=== PATIENT | male | born 1970 | race Caucasian/White ===

== ENCOUNTER 2016-08-02 18:25 | Emergency (ER) | payer SELFPAY ==
[~2016-08-02] VITALS: Ht 172.7 cm; Wt 57.0 kg
[2016-08-02 18:31] VITALS: BP 100/74; PULSE 85; RESP 18; TEMP 98.7; O2SAT 94
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
[2016-08-02] MEDS ORDERED: CLIN1CAP5 PO (20:22)
[2016-08-02] MEDS ORDERED: CLINDAMYCIN 150 MG CAP PO ONE (20:30)
[2016-08-02 20:46] VITALS: BP 106/76
== END 2016-08-02 20:48 | disposition home or self-care (01) ==
LOC: PHED 18:25 → PHEFT 20:48
DX: L72.0 Epidermal cyst (principal); F17.200 Nicotine dependence, unspecified, uncomplicated; Z88.2 Allergy status to sulfonamides
CPT/HCPCS: 99283

== ENCOUNTER 2017-08-30 14:02 | Observation (INO) | payer SELFPAY ==
[2017-08-30] VITALS (8 sets, daily range): BP systolic 98–127; BP diastolic 51–79; PULSE 77–91; RESP 18–20; TEMP 97.9–99.6; O2SAT 90–96
[~2017-08-30] VITALS: Ht 175.3 cm; Wt 58.8 kg
[~2017-08-30 14:02] MED LIST: CLIN150C14 PO
[2017-08-30] MEDS ORDERED: SODIUM CHLORIDE 0.9% FLUSH 10 ML FLUSH IVF PRN (14:30)
[2017-08-30] MEDS ORDERED: methylPREDNISolone SOD SUCC 125 MG/2 ML VIAL IV PUSH ONE (14:30)
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
[2017-08-30 14:51] LABS: AUTOMATED NEUTROPHIL # 3.8 TH/MM3 (1.8-7.7); BASOPHIL # 0.1 TH/MM3 (0-0.2); BASOPHIL % 1.3 % (0.0-2.0); EOSINOPHIL # 0.1 TH/MM3 (0-0.4); EOSINOPHIL % 1.2 % (0.0-4.0); HEMATOCRIT 45.8 % (39.0-51.0); HEMOGLOBIN 15.4 GM/DL (13.0-17.0); LYMPHOCYTE # 1.3 TH/MM3 (1.0-4.8); MEAN CELL VOLUME 96.3 FL (80.0-100.0); MEAN CORPUSCULAR HEMOGLOBIN 32.3 PG (27.0-34.0); MEAN CORPUSCULAR HGB CONC 33.6 % (32.0-36.0); MEAN PLATELET VOLUME 8.5 FL (7.0-11.0); MONO % 6.6 % (0.0-8.0); MONOCYTE # 0.4 TH/MM3 (0-0.9); NEUT % 67.9 % (16.0-70.0); PLATELET COUNT 191 TH/MM3 (150-450); RED BLOOD COUNT 4.75 MIL/MM3 (4.50-5.90); RED CELL DISTRIBUTION WIDTH 12.5 % (11.6-17.2); WHITE BLOOD COUNT 5.7 TH/MM3 (4.0-11.0)
[2017-08-30 15:00] LABS: CHLORIDE 106 MEQ/L (98-107); SODIUM (NA) 139 MEQ/L (136-145)
[2017-08-30] MEDS: RESP: ALBUTEROL 2.5 MG/IPRATROPIUM 0.5 MG NEB (SCH) INH ×4 (15:01→20:27)
[2017-08-30 15:03] LABS: BICARBONATE 26.8 MEQ/L (21.0-32.0); BLOOD UREA NITROGEN 6 MG/DL (7-18); CALCIUM 9.3 MG/DL (8.5-10.1); GLUCOSE,RANDOM 89 MG/DL (74-106)
[2017-08-30 15:06] LABS: ALT (GPT) 14 U/L (12-78); AST (GOT) 13 U/L (15-37); CREATININE 0.69 MG/DL (0.60-1.30); GLOMERULAR FILTRATION RATE 123 ML/MIN (>89)
[2017-08-30 15:08] LABS: TOTAL BILIRUBIN ADULT 0.7 MG/DL (0.2-1.0); TOTAL PROTEIN 7.7 GM/DL (6.4-8.2)
[2017-08-30 15:09] LABS: ALKALINE PHOSPHATASE 102 U/L (45-117)
[2017-08-30 15:11] LABS: TROPONIN I LESS THAN 0.02 NG/ML (0.02-0.05)
--- NOTE | 2017-08-30 16:01 | RADRPT ---
EXAM DATE/TIME: 08/30/2017 15:34 [facility] COMPARISON: CHEST SINGLE AP, December 31, 2015, 10:38. INDICATIONS : Cough and short of breath for several days. MEDICAL HISTORY : None. SURGICAL HISTORY : None. ENCOUNTER: Initial ACUITY: 3 days PAIN SCORE: 3/10 LOCATION: Bilateral chest FINDINGS: PA and lateral views of the chest demonstrate the lungs to be symmetrically aerated without evidence of mass, infiltrate or effusion. The cardiomediastinal contours are unremarkable. Mild wedge-shaped deformities of the midthoracic spine with slight exaggerated kyphosis. Conclusion: No acute cardiopulmonary disease. Mild wedge-shaped midthoracic spine compression deformities. Anirudh Anderson MD on August 30, 2017 at 15:56 Board Certified Radiologist. This report was verified electronically.
[2017-08-30] MEDS ORDERED: SODIUM CHLOR 0.9% 1000 ML INJ 1,000 ML IV ONE (16:30)
--- NOTE | 2017-08-30 17:12 | HHI.HP ---
[facility] Service [facility] Primary Care Physician No Primary Care Physician Admission Diagnosis copd exacerbation Diagnoses: Chief Complaint: Shortness of breath Travel History International Travel<30 Days: No Contact w/Intl Traveler <30 Da: No Traveled to Known Affected Are: No History of Present Illness This patient is a 47-year-old gentleman with minimal past medical history and 20 -pack-year history of tobacco who comes in with increasing shortness of breath over the last several months worse over the last 3 days. He can barely walk across his house with out shortness of breath or dizziness. He has some chest tightness associated and has increasing sputum with cough. He feels that there is a lot of phlegm in his throat. He is denying any fever or swelling in his legs. He has not had any wiliam chest pain. Patient does not take any medications at home. He lives with his mother and is relatively inactive. He also reports at least a 15 pound weight loss over the last 3 months. He has not had any nausea or vomiting. Patient does have some diarrhea. Ower Review of Systems Constitutional: COMPLAINS OF: Dizziness, DENIES: Diaphoretic episodes, Fatigue , Fever, Weight gain, Weight loss, Chills, Change in appetite, Night Sweats Endocrine: DENIES: Heat/cold intolerance, Polydipsia, Polyuria, Polyphagia Eyes: DENIES: Blurred vision, Diplopia, Eye inflammation, Eye pain, Vision loss , Photosensitivity, Double Vision Ears, nose, mouth, throat: DENIES: Tinnitus, Hearing loss, Vertigo, Nasal discharge, Oral lesions, Throat pain, Hoarseness, Ear Pain, Running Nose, Epistaxis, Sinus Pain, Toothache, Odynophagia Respiratory: COMPLAINS OF: Cough, Sputum production, Shortness of breath, DENIES: Apneas, Snoring, Wheezing, Hemoptysis Cardiovascular: COMPLAINS OF: Dyspnea on Exertion, DENIES: Chest pain, Palpitations, Syncope, PND, Lower Extremity Edema, Orthopnea, Claudication Gastrointestinal: DENIES: Abdominal pain, Black stools, Bloody stools, Constipation, Diarrhea, Nausea, Vomiting, Difficulty Swallowing, Anorexia Genitourinary: DENIES: Sexual dysfunction, Urinary frequency, Urinary incontinence, Urgency, Hematuria, Dysuria, Nocturia, Penile Discharge, Testicular Pain, Testicular Swelling Musculoskeletal: DENIES: Joint pain, Muscle aches, Stiffness, Joint Swelling, Back pain, Neck pain Integumentary: DENIES: Abnormal pigmentation, Nail changes, Pruritus, Rash Hematologic/lymphatic: DENIES: Bruising, Lymphadenopathy Immunologic/allergic: DENIES: Eczema, Urticaria Neurologic: DENIES: Abnormal gait, Headache, Localized weakness, Paresthesias, Seizures, Speech Problems, Tremor, Poor Balance Psychiatric: DENIES: Anxiety, Confusion, Mood changes, Depression, Hallucinations, Agitation, Suicidal Ideation, Homicidal Ideation, Delusions Except as stated in HPI: all other systems reviewed are Neg Past Family Social History Past Medical History Degenerative disc disease Chronic tobacco dependency Past Surgical History Tonsillectomy Status post splenectomy Reported Medications Reviewed in the EMR Allergies: Coded Allergies: sulfamethoxazole (Unverified Allergy, Severe, Anaphylaxis, 08/30/17) trimethoprim (Unverified Allergy, Severe, Anaphylaxis, 08/30/17) Active Ordered Medications Reviewed in the EMR Family History Mother has retinal degeneration Social History Patient smokes a pack a day for the last 20 years, lives with his mother, has an A.S. in [employer] Denies alcohol Physical Exam Vital Signs Vital Signs Date Time Temp Pulse Resp B/P (MAP) Pulse Ox O2 Delivery O2 Flow Rate FiO2 08/30/17 16:30 91 Nasal Cannula 2.00 08/30/17 16:30 89 20 98/67 (77) 91 Nasal Cannula 2.00 08/30/17 16:20 90 Room Air 08/30/17 15:40 89 20 117/68 (84) 95 Room Air 08/30/17 14:54 94 Room Air 08/30/17 14:54 94 08/30/17 14:05 98.2 77 18 127/69 (88) 92 Physical Exam GENERAL: This is a thin male who is complaining of lightheadedness SKIN: No rashes, ecchymoses or lesions. Cool and dry. HEAD: Atraumatic. Normocephalic. No temporal or scalp tenderness. EYES: Pupils equal round and reactive. Extraocular motions intact. No scleral icterus. No injection or drainage. ENT: Nose without bleeding, purulent drainage or septal hematoma. Throat without erythema, tonsillar hypertrophy or exudate. Uvula midline. Airway patent. NECK: Trachea midline. No JVD or lymphadenopathy. Supple, nontender, no meningeal signs. CARDIOVASCULAR: Regular rate and rhythm without murmurs, gallops, or rubs. RESPIRATORY: Decreased breath sounds bilaterally with scattered crackles GASTROINTESTINAL: Abdomen soft, non-tender, nondistended. No hepato-splenomegaly , or palpable masses. No guarding. MUSCULOSKELETAL: Extremities without clubbing, cyanosis, or edema. No joint tenderness, effusion, or edema noted. No calf tenderness. Negative Homans sign bilaterally. NEUROLOGICAL: Awake and alert. Cranial nerves II through XII intact. Motor and sensory grossly within normal limits. Five out of 5 muscle strength in all muscle groups. Normal speech. Laboratory Laboratory Tests Test 08/30/17 14:40 White Blood Count 5.7 Red Blood Count 4.75 Hemoglobin 15.4 Hematocrit 45.8 Mean Corpuscular Volume 96.3 Mean Corpuscular Hemoglobin 32.3 Mean Corpuscular Hemoglobin Concent 33.6 Red Cell Distribution Width 12.5 Platelet Count 191 Mean Platelet Volume 8.5 Neutrophils (%) (Auto) 67.9 Lymphocytes (%) (Auto) 23.0 Monocytes (%) (Auto) 6.6 Eosinophils (%) (Auto) 1.2 Basophils (%) (Auto) 1.3 Neutrophils # (Auto) 3.8 Lymphocytes # (Auto) 1.3 Monocytes # (Auto) 0.4 Eosinophils # (Auto) 0.1 Basophils # (Auto) 0.1 CBC Comment DIFF FINAL Differential Comment Blood Urea Nitrogen 6 Creatinine 0.69 Random Glucose 89 Total Protein 7.7 Albumin 4.0 Calcium Level 9.3 Alkaline Phosphatase 102 Aspartate Amino Transf (AST/SGOT) 13 Alanine Aminotransferase (ALT/SGPT) 14 Total Bilirubin 0.7 Sodium Level 139 Potassium Level 4.4 Chloride Level 106 Carbon Dioxide Level 26.8 Anion Gap 6 Estimat Glomerular Filtration Rate 123 Troponin I LESS THAN 0.02 B-Type Natriuretic Peptide 4 Result Diagram: 08/30/17 1440 08/30/17 1440 Imaging Last Impressions Chest X-Ray 08/30/17 1424 Signed Impressions: Service Date/Time: Wednesday, August 30, 2017 15:34 - CONCLUSION: No acute cardiopulmonary disease. Mild wedge-shaped midthoracic spine compression deformities. Anirudh Anderson MD Septic Shock Reassessment Septic shock perfusion: reassessment completed Caprini VTE Risk Assessment Caprini VTE Risk Assessment: No/Low Risk (score <= 1) Caprini Risk Assessment Model Point Value = 1 Point Value = 2 Point Value = 3 Point Value = 5 Age 41-60 Minor surgery BMI > 25 kg/m2 Swollen legs Varicose veins or History of unexplained or recurrent spontaneous Oral contraceptives or hormone replacement Sepsis (< 1 month) Serious lung disease, including pneumonia (< 1 month) Abnormal pulmonary function Acute myocardial infarction Congestive heart failure (< 1 month) History of inflammatory bowel disease Medical patient at bed rest Age 61-74 Arthroscopic surgery Major open surgery (> 45 min) Laparoscopic surgery (> 45 min) Malignancy Confined to bed (> 72 hours) Immobilizing plaster cast Central venous access Age >= 75 History of VTE Family history of VTE Factor V Leiden Prothrombin [id number] Lupus anticoagulant Anticardiolipin antibodies Elevated serum homocysteine Heparin-induced thrombocytopenia Other congenital or acquired thrombophilia Stroke (< 1 month) Elective arthroplasty Hip, pelvis, or leg fracture Acute spinal cord injury (< 1 month) Prophylaxis Regimen Total Risk Factor Score Risk Level Prophylaxis Regimen 0-1 Low Early ambulation 2 Moderate Order ONE of the following: *Sequential Compression Device (SCD) *Heparin 5000 units SQ BID 3-4 Higher Order ONE of the following medications: *Heparin 5000 units SQ TID *Enoxaparin/Lovenox 40 mg SQ daily (WT < 150 kg, CrCl > 30 mL/min) *Enoxaparin/Lovenox 30 mg SQ daily (WT < 150 kg, CrCl > 10-29 mL/min) *Enoxaparin/Lovenox 30 mg SQ BID (WT < 150 kg, CrCl > 30 mL/min) AND/OR *Sequential Compression Device (SCD) 5 or more Highest Order ONE of the following medications: *Heparin 5000 units SQ TID (Preferred with Epidurals) *Enoxaparin/Lovenox 40 mg SQ daily (WT < 150 kg, CrCl > 30 mL/min) *Enoxaparin/Lovenox 30 mg SQ daily (WT < 150 kg, CrCl > 10-29 mL/min) *Enoxaparin/Lovenox 30 mg SQ BID (WT < 150 kg, CrCl > 30 mL/min) AND *Sequential Compression Device (SCD) Assessment and Plan Problem List: (1) Acute respiratory failure with hypoxia ICD Code: J96.01 - Acute respiratory failure with hypoxia Status: Resolved Plan: We will continue with empiric treatment for acute bronchitis, continue antibiotics, bronchodilators by nebulizer IV steroids Oxygen as needed Follow-up ABG Add proton pump inhibitor and check echocardiogram (2) Hypotension ICD Code: I95.9 - Hypotension, unspecified Plan: Etiology unclear, patient appears to have some weight loss Follow-up clinically Assessment and Plan Patient also with a history of scoliosis and degenerative disc disease which may explain the findings on CT Juani Baez MD August 30, 2017 17:12
[2017-08-30] MEDS ORDERED: AZITHROMYCIN 250 MG TAB PO ONE ×2 (17:15→17:30)
[2017-08-30] MEDS ORDERED: RESP: ALBUTEROL 2.5 MG/3 ML NEB (PRN) INH (17:15)
[2017-08-30] MEDS ORDERED: SODIUM CHLORIDE 0.9% FLUSH 10 ML FLUSH IV FLUSH PRN (17:15)
[2017-08-30] MEDS: PANTOPRAZOLE SOD 40 MG DELAYED RELEASE TAB PO SCH (17:51)
[2017-08-30] MEDS ORDERED: ENOXAPARIN SODIUM 40 MG/0.4 ML SYRINGE SQ SCH (18:00)
[2017-08-30] MEDS: SODIUM CHLORIDE 0.9% FLUSH 10 ML FLUSH IV FLUSH SCH (20:22)
[2017-08-30] MEDS ORDERED: ACETAMINOPHEN 325 MG TAB PO PRN (21:15)
[2017-08-30] MEDS: methylPREDNISolone SOD SUCC 125 MG/2 ML VIAL IV PUSH SCH (21:24)
[2017-08-30] MEDS ORDERED: IOHEXOL 350 MG/ML 10 ML VIAL (for RAD DIAG) IVCONTRAST ONE (21:32)
--- NOTE | 2017-08-30 22:03 | RADRPT ---
EXAM DATE/TIME: 08/30/2017 21:32 [facility] COMPARISON: No previous studies available for comparison. INDICATIONS : Shortness of breath. Chest pain. IV CONTRAST: 75 cc Omnipaque 350 (iohexol) IV RADIATION DOSE: 7.47 CTDIvol (mGy) MEDICAL HISTORY : None SURGICAL HISTORY : Spleen. ENCOUNTER: Initial ACUITY: 3 days PAIN SCALE: 5/10 LOCATION: Bilateral chest TECHNIQUE: Volumetric scanning of the chest was performed using a pulmonary embolism protocol MIP images were re constructed. Using automated exposure control and adjustment of the mA and/or kV according to patien t size, radiation dose was kept as low as reasonably achievable to obtain optimal diagnostic quality images. DICOM format image data is available electronically for review and comparison. Follow-up recommendations for detected pulmonary nodules are based at a minimum on nodule size and pa tient risk factors according to Fleischner Society Guidelines. FINDINGS: PULMONARY ARTERIES: No filling defects are seen in the pulmonary arteries through the segmental level. LUNGS: There is no consolidation or pneumothorax . No concerning pulmonary nodule is visualized. PLEURAE: There is no pleural thickening or pleural effusion. MEDIASTINUM: There is good visualization of the great vessels of the middle mediastinum. No evidence of mediastin al or hilar adenopathy/mass. MUSCULOSKELETAL: Within normal limits for patient age. MISCELLANEOUS: The visualized upper abdominal organs demonstrate no acute abnormality. CONCLUSION: 1. Negative for pulmonary embolus. Mild peribronchial thickening is present without consolidation or effusion. Griffin Mckeon MD on August 30, 2017 at 21:59 Board Certified Radiologist. This report was verified electronically.
[2017-08-31 00:17] VITALS: BP 103/56; PULSE 88; RESP 20; TEMP 98.2; O2SAT 94
[2017-08-31] MEDS: methylPREDNISolone SOD SUCC 125 MG/2 ML VIAL IV PUSH SCH ×2 (03:38→10:08)
[2017-08-31 06:53] LABS: BICARBONATE 24.9 MEQ/L (21.0-32.0); CALCIUM 9.2 MG/DL (8.5-10.1)
[2017-08-31 06:57] LABS: CREATININE 0.6 MG/DL (0.60-1.30)
[2017-08-31] MEDS: RESP: ALBUTEROL 2.5 MG/IPRATROPIUM 0.5 MG NEB (SCH) INH ×2 (07:27→13:31)
[2017-08-31 07:29] VITALS: O2SAT 98
[2017-08-31 08:00] VITALS: BP 111/66; PULSE 82; RESP 18; TEMP 97.4; O2SAT 95
--- NOTE | 2017-08-31 08:52 | EKG ---
Date Performed: 08/30/2017 Time Performed: 14:13:10 PTAGE: 47 years EKG: Sinus rhythm WITH SINUS ARRHYTHMIA BORDERLINE RIGHT AXIS DEVIATION BORDERLINE ECG PREVIOUS TRACING : 12/31/2015 10.47 Since the previous tracing, no significant change noted DOCTOR: Lemuel Pérez Interpretating Date/Time 08/31/2017 08:48:35
[2017-08-31] MEDS ORDERED: AZITHROMYCIN 250 MG TAB PO SCH (09:00)
[2017-08-31] MEDS: SODIUM CHLORIDE 0.9% FLUSH 10 ML FLUSH IV FLUSH SCH (10:07)
[2017-08-31] MEDS: PANTOPRAZOLE SOD 40 MG DELAYED RELEASE TAB PO SCH (10:08)
[2017-08-31 12:00] VITALS: BP 111/67; PULSE 96; RESP 18; TEMP 97; O2SAT 95
--- NOTE | 2017-08-31 12:04 | HHI.PR ---
Subjective Remarks Patient seen and evaluated in follow-up for acute bronchitis which appears to be improved. Discharge plans discussed with patient who is in agreement. Echocardiogram completed. Patient says he feels much better. He is not hypoxemic Objective Vitals Vital Signs Date Time Temp Pulse Resp B/P (MAP) Pulse Ox O2 Delivery O2 Flow Rate FiO2 08/31/17 07:29 98 Nasal Cannula 2.00 08/31/17 00:17 98.2 88 20 103/56 (72) 94 08/30/17 20:25 95 Nasal Cannula 2.00 08/30/17 20:00 99.6 91 20 105/51 (69) 91 08/30/17 17:45 97.9 79 18 119/79 (92) 96 08/30/17 17:30 08/30/17 16:30 91 Nasal Cannula 2.00 08/30/17 16:30 89 20 98/67 (77) 91 Nasal Cannula 2.00 08/30/17 16:20 90 Room Air 08/30/17 15:40 89 20 117/68 (84) 95 Room Air 08/30/17 14:54 94 Room Air 08/30/17 14:54 94 08/30/17 14:05 98.2 77 18 127/69 (88) 92 Result Diagram: 08/30/17 1440 08/31/17 0545 Imaging Last Impressions Chest X-Ray 08/30/17 1424 Signed Impressions: Service Date/Time: Wednesday, August 30, 2017 15:34 - CONCLUSION: No acute cardiopulmonary disease. Mild wedge-shaped midthoracic spine compression deformities. Anirudh Anderson MD CT Angiography 08/30/17 0000 Signed Impressions: Service Date/Time: Wednesday, August 30, 2017 21:32 - CONCLUSION: 1. Negative for pulmonary embolus. Mild peribronchial thickening is present without consolidation or effusion. Griffin Mckeon MD Objective Remarks GENERAL: This is a well-nourished, well-developed patient, in no apparent distress. CARDIOVASCULAR: Regular rate and rhythm without murmurs, gallops, or rubs. RESPIRATORY: Clear to auscultation. Breath sounds equal bilaterally. No wheezes , rales, or rhonchi. GASTROINTESTINAL: Abdomen soft, non-tender, nondistended. Normal active bowel sounds MUSCULOSKELETAL: Extremities without clubbing, cyanosis, or edema. NEURO: Alert & Oriented x4 to person, place, time, situation. Moves all ext x4 A/P Problem List: (1) Acute respiratory failure with hypoxia ICD Code: J96.01 - Acute respiratory failure with hypoxia Status: Resolved Plan: We will continue with empiric treatment for acute bronchitis, continue antibiotics, bronchodilators by nebulizer IV steroids Patient also to, ABG unremarkable Add proton pump inhibitor and check echocardiogram (2) Hypotension ICD Code: I95.9 - Hypotension, unspecified Plan: Resolved Assessment and Plan Activity unrestricted Diet regular Patient encouraged to discontinue tobacco Juani Baez MD August 31, 2017 12:04
[2017-08-31] MEDS ORDERED: NEBULIZER1 MI1 (12:07)
[2017-08-31] MEDS ORDERED: PRED20 PO (12:07)
[2017-08-31] MEDS ORDERED: Albuterol Neb INH (12:07)
[2017-08-31] MEDS ORDERED: AZIT250T3 PO (12:07)
[2017-08-31] MEDS ORDERED: PANT40TA3 PO (12:07)
--- NOTE | 2017-08-31 16:59 | ECHRPT ---
Indication: SHORTNESS OF BREATH CONCLUSIONS Normal left ventricular size. ef=60% Wall thickness is normal. The left ventricular systolic function is grossly normal on limited imaging. BP: 103 / 56 HR: 88 Rhythm: MEASUREMENTS (Male / Female) Normal Values Technical Quality: 2D ECHO LV Diastolic Diameter PLAX 4.5 cm 4.2 - 5.9 / 3.9 - 5.3 cm LV Systolic Diameter PLAX 3.0 cm IVS Diastolic Thickness 0.9 cm 0.6 - 1.0 / 0.6 - 0.9 cm LVPW Diastolic Thickness 0.9 cm 0.6 - 1.0 / 0.6 - 0.9 cm LV Relative Wall Thickness 0.4 DOPPLER AV Peak Velocity 141.0 cm/s AV Peak Gradient 8.0 mmHg AV Mean Gradient 4.0 mmHg AV Velocity Time Integral 30.1 cm LVOT Peak Velocity 106.0 cm/s LVOT Peak Gradient 4.5 mmHg LVOT Velocity Time Integral 24.5 cm Mitral E Point Velocity 81.9 cm/s Mitral A Point Velocity 59.7 cm/s Mitral E to A Ratio 1.4 LV E' Lateral Velocity 10.5 cm/s Mitral E to LV E' Lateral Ratio 7.8 LV E' Septal Velocity 6.9 cm/s Mitral E to LV E' Septal Ratio 11.8 PV Peak Velocity 84.2 cm/s PV Peak Gradient 2.8 mmHg FINDINGS LEFT VENTRICLE Normal left ventricular size. Wall thickness is normal. The left ventricular systolic function is grossly normal on limited imaging. RIGHT VENTRICLE Normal right ventricular size and systolic function. LEFT ATRIUM The left atrial size is normal. RIGHT ATRIUM The right atrial size is normal. ATRIAL SEPTUM No atrial level shunt is demonstrated by color flow Doppler interrogation. AORTA The aortic root and proximal ascending aorta are not well visualized. MITRAL VALVE Structurally normal mitral valve. No mitral valve stenosis or regurgitation. AORTIC VALVE Trileaflet aortic valve. No aortic valve stenosis or regurgitation. TRICUSPID VALVE Structurally normal tricuspid valve. No tricuspid valve stenosis or regurgitation. PULMONARY VALVE No pulmonary valve regurgitation or stenosis. VESSELS The inferior vena cava is normal in size. PERICARDIUM No pericardial effusion. Markie Keyes MD, FACC, [facility] (Electronically Signed) Final Date:31 Aug 2017 16:58
== END 2017-08-31 14:47 | disposition home or self-care (01) ==
LOC: PHED 14:02 → PHEDA 16:37 → PH3B 17:29
PROVIDERS: ADMIT Hospitalist; ATTEND Hospitalist
DX: J96.01 Acute respiratory failure with hypoxia (principal); J44.1 Chronic obstructive pulmonary disease with (acute) exacerbation; J44.0 Chronic obstructive pulmonary disease with (acute) lower respiratory infection; J20.9 Acute bronchitis, unspecified; I95.9 Hypotension, unspecified; I49.9 Cardiac arrhythmia, unspecified; R19.7 Diarrhea, unspecified; M41.9 Scoliosis, unspecified; F17.200 Nicotine dependence, unspecified, uncomplicated
CPT/HCPCS: 36600; 71046; 71275; 80048; 80053; 82805; 83880; 84484; 85025; 93005; 93306; 94618; 94640; 94664; 96361; 96372; 96374; 96376; 99285; G0378; J1650; J2930; J7030; Q9967

== ENCOUNTER 2017-10-06 19:30 | Observation (INO) | payer SELFPAY ==
[~2017-10-06] VITALS: Ht 170.2 cm; Wt 56.2 kg
[~2017-10-06 19:30] MED LIST changes: +AZIT250T3 PO; +Albuterol Neb INH; -CLIN150C14 PO; +NEBULIZER1 MI1; +PANT40TA3 PO; +PRED20 PO
[2017-10-06 19:35] VITALS: BP 111/76; PULSE 104; RESP 20; TEMP 99.3; O2SAT 94
[2017-10-06] MEDS ORDERED: VENTAER INH (19:51)
[2017-10-06] MEDS ORDERED: methylPREDNISolone SOD SUCC 125 MG/2 ML VIAL IV PUSH ONE (20:00)
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
[2017-10-06] MEDS: RESP: ALBUTEROL 2.5 MG/IPRATROPIUM 0.5 MG NEB (SCH) INH ×2 (20:07→20:08)
[2017-10-06 20:14] LABS: AUTOMATED NEUTROPHIL # 6.5 TH/MM3 (1.8-7.7); BASOPHIL # 0.2 TH/MM3 (0-0.2); BASOPHIL % 2.1 % (0.0-2.0); EOSINOPHIL % 0.4 % (0.0-4.0); HEMATOCRIT 45.8 % (39.0-51.0); HEMOGLOBIN 15.7 GM/DL (13.0-17.0); LYMPH % 17.7 % (9.0-44.0); LYMPHOCYTE # 1.5 TH/MM3 (1.0-4.8); MEAN CELL VOLUME 100.1 FL (80.0-100.0); MEAN CORPUSCULAR HEMOGLOBIN 34.4 PG (27.0-34.0); MEAN CORPUSCULAR HGB CONC 34.3 % (32.0-36.0); MEAN PLATELET VOLUME 8.1 FL (7.0-11.0); MONOCYTE # 0.4 TH/MM3 (0-0.9); NEUT % 74.8 % (16.0-70.0); PLATELET COUNT 220 TH/MM3 (150-450); RED BLOOD COUNT 4.58 MIL/MM3 (4.50-5.90); RED CELL DISTRIBUTION WIDTH 12.6 % (11.6-17.2); WHITE BLOOD COUNT 8.6 TH/MM3 (4.0-11.0)
--- NOTE | 2017-10-06 20:15 | RADRPT ---
EXAM DATE: 10/06/2017 8:10 PM EDT AGE/SEX: 47 years / Male INDICATIONS: Short of breath. CLINICAL DATA: This is the patient's initial encounter. Patient reports that signs and symptoms have been present for 1 day and indicates a pain score of 0/10. MEDICAL/SURGICAL HISTORY: None. None. COMPARISON: [facility], CHEST SINGLE AP, 12/31/2015. . FINDINGS: Portable AP view of the chest demonstrates a normal-sized cardiac silhouette. The lungs demonstrate n o definite effusion, consolidation, or pneumothorax. The bones and soft tissues demonstrate no acute finding. Lungs are mildly underinflated. EKG lines overlie the patient. CONCLUSION: No acute cardiopulmonary abnormality is identified. Electronically signed by: Celestino Rivas MD 10/06/2017 8:13 PM EDT
[2017-10-06 20:21] LABS: CHLORIDE 101 MEQ/L (98-107); SODIUM (NA) 135 MEQ/L (136-145)
[2017-10-06 20:24] LABS: BICARBONATE 27.2 MEQ/L (21.0-32.0); CALCIUM 8.8 MG/DL (8.5-10.1); GLUCOSE,RANDOM 113 MG/DL (74-106); PROTHROMBIN TIME - PATIENT 10.2 SEC (9.8-11.6)
[2017-10-06] MEDS ORDERED: IOHEXOL 350 MG/ML 10 ML VIAL (for RAD DIAG) IVCONTRAST ONE (20:24)
[2017-10-06 20:25] LABS: BLOOD UREA NITROGEN 6 MG/DL (7-18)
[2017-10-06 20:28] LABS: CREATININE 0.76 MG/DL (0.60-1.30); GLOMERULAR FILTRATION RATE 110 ML/MIN (>89)
[2017-10-06 20:32] LABS: TROPONIN I LESS THAN 0.02 NG/ML (0.02-0.05)
--- NOTE | 2017-10-06 20:35 | RADRPT ---
EXAM DATE: 10/06/2017 8:23 PM EDT AGE/SEX: 47 years / Male INDICATIONS: Lower abdominal pain. CLINICAL DATA: This is the patient's initial encounter. Patient reports that signs and symptoms have been present for 1 day and indicates a pain score of 1/10. MEDICAL/SURGICAL HISTORY: Chronic obstructive pulmonary disease. . Spleen surgery. ORAL CONTRAST: No oral contrast ingested. RADIATION DOSE: 5.38 CTDI (mGy) COMPARISON: No prior exams available for comparison. TECHNIQUE: Multiple contiguous axial images were obtained through the abdomen and pelvis following b olus infusion of 90 ml Omnipaque 350 (iohexol) nonionic water-soluble contrast as a single exam dos e. No oral contrast ingested. Using automated exposure control and adjustment of the mA and/or kV ac cording to patient size, the radiation dose was kept as low as reasonably achievable to obtain optima l diagnostic quality images. FINDINGS: Lower chest: No acute abnormality is identified. Hepatobiliary: There is an incidental 3 mm low-density lesion in the left lobe that is too small to c haracterize. No concerning liver lesion is seen. No calcified gallstones are present. Kidneys: No hydronephrosis, stone, or mass. Adrenal Glands: Within normal limits. Spleen: Within normal limits. Pancreas: Within normal limits. Vascular: The aorta is nonaneurysmal. There is moderate atherosclerotic disease. Bowel/Mesentery: The stomach and small bowel demonstrate no abnormality. No acute colon abnormality i s seen. There is no free intraperitoneal air or fluid. Abdominal Wall: No hernia is visualized. Retroperitoneum: No lymphadenopathy. Bladder: No wall thickening or mass. Reproductive: Within normal limits. Inguinal: No lymphadenopathy or hernia. Musculoskeletal: No acute osseous abnormality is identified. There are mild degenerative changes of t he lumbar spine. There is degenerative disc disease at L4-L5. CONCLUSION: 1. No acute finding is identified in the abdomen or pelvis to explain the abdominal pain. 2. Moderate atherosclerotic disease. Electronically signed by: Celestino Rivas MD 10/06/2017 8:34 PM EDT
[2017-10-06 21:00] VITALS: O2SAT 93
[2017-10-06] MEDS ORDERED: ACETAMINOPHEN 325 MG TAB PO PRN (21:00)
[2017-10-06] MEDS ORDERED: SODIUM CHLORIDE 0.9% FLUSH 10 ML FLUSH IV FLUSH PRN (21:00)
[2017-10-06] MEDS ORDERED: ONDANSETRON HCL 4 MG/2 ML VIAL IVP PRN (21:00)
[2017-10-06] MEDS ORDERED: BISACODYL 10 MG SUPP RECTAL PRN (21:00)
[2017-10-06] MEDS ORDERED: LACTULOSE SYRUP 20 GM/30 ML CUP PO PRN (21:00)
[2017-10-06] MEDS ORDERED: NALOXONE HCL 0.4 MG/ML AMP IV PUSH PRN (21:00)
[2017-10-06] MEDS ORDERED: SENNOSIDES 8.6 MG TAB PO PRN (21:00)
[2017-10-06] MEDS ORDERED: MAGNESIUM HYDROXIDE SUSP 30 ML CUP PO PRN (21:00)
[2017-10-06 21:02] VITALS: PULSE 104; RESP 18; O2SAT 100
[2017-10-06] MEDS: DOCUSATE SODIUM 50 MG/SENNA 8.6 MG TAB PO SCH (21:16)
[2017-10-06] MEDS: SODIUM CHLORIDE 0.9% FLUSH 10 ML FLUSH IV FLUSH SCH (21:16)
[2017-10-06 21:21] VITALS: BP 108/66; PULSE 103; RESP 18; O2SAT 100
[2017-10-06 22:47] VITALS: BP 112/86; PULSE 88; RESP 20; TEMP 97.1; O2SAT 100
[2017-10-06 23:30] VITALS: O2SAT 94
[2017-10-07 04:07] VITALS: BP 113/72; PULSE 83; RESP 20; TEMP 97; O2SAT 96
[2017-10-07 07:48] LABS: AUTOMATED NEUTROPHIL # 4.6 TH/MM3 (1.8-7.7); BASOPHIL # 0.1 TH/MM3 (0-0.2); BASOPHIL % 1.1 % (0.0-2.0); EOSINOPHIL % 0.7 % (0.0-4.0); HEMATOCRIT 41.4 % (39.0-51.0); HEMOGLOBIN 14.5 GM/DL (13.0-17.0); LYMPH % 11.7 % (9.0-44.0); LYMPHOCYTE # 0.6 TH/MM3 (1.0-4.8); MEAN CELL VOLUME 95.5 FL (80.0-100.0); MEAN CORPUSCULAR HEMOGLOBIN 33.5 PG (27.0-34.0); MEAN CORPUSCULAR HGB CONC 35.1 % (32.0-36.0); MEAN PLATELET VOLUME 9.4 FL (7.0-11.0); MONO % 0.7 % (0.0-8.0); NEUT % 85.8 % (16.0-70.0); PLATELET COUNT 186 TH/MM3 (150-450); RED BLOOD COUNT 4.34 MIL/MM3 (4.50-5.90); RED CELL DISTRIBUTION WIDTH 12.5 % (11.6-17.2); WHITE BLOOD COUNT 5.3 TH/MM3 (4.0-11.0)
[2017-10-07 07:57] VITALS: BP 110/79; PULSE 84; RESP 18; TEMP 96.5; O2SAT 97
[2017-10-07] MEDS: DOCUSATE SODIUM 50 MG/SENNA 8.6 MG TAB PO SCH (08:04)
[2017-10-07] MEDS: SODIUM CHLORIDE 0.9% FLUSH 10 ML FLUSH IV FLUSH SCH (08:04)
[2017-10-07 08:08] LABS: BICARBONATE 22.5 MEQ/L (21.0-32.0); CREATININE 0.63 MG/DL (0.60-1.30)
[2017-10-07] MEDS ORDERED: RESP: ALBUTEROL 2.5 MG/IPRATROPIUM 0.5 MG NEB (PRN) NEB (10:00)
[2017-10-07 10:45] VITALS: O2SAT 94
[2017-10-07] MEDS ORDERED: BUDESONIDE-FORMOTEROL 160/4.5 MCG INHALER INH SCH (11:00)
[2017-10-07 11:35] VITALS: BP 117/60; PULSE 73; RESP 18; TEMP 96.6; O2SAT 95
--- NOTE | 2017-10-07 11:38 | HHI.HP ---
[facility] John Curiel MD (Paul) Admission Diagnosis Hypoxemia, elevated carboxyhemoglobin Diagnoses: Travel History International Travel<30 Days: No Contact w/Intl Traveler <30 Da: No Traveled to Known Affected Are: No History of Present Illness Pt is a 47 yr male w PMHx COPD exacerbation, tobacco abuse presented to the ED w complaints of SOB. Pt states he was recently admitted about 1 month ago w same symptoms and was discharged w nebulizer treatments. He states that he did his breathing treatments but didn't improve much. He did go see Dr. Curiel, but apparently he wasn't able to obtain his records and ended up prescribing him an albuterol inhaler. Pt went home and after two weeks, still wasn't feeling well. He attempted to go see Dr. Curiel but unfortunately they couldn't get him in. He tried to manage it at home and using his nebulizer every 4 hours instead of 6hrs. Finally last night he decided to come in to the hospital for further eval. He states that at the time he was seen he was very SOB, was experiencing a burning sensation to his chest. He admitted to some coughing. Denied any fevers or chills and denied any chest pains. In the ED, he received a dose of solu-medrol IV and a breathing treatment and was also given high flow oxygen. At time I evaluated the pt, he tells me that he feels 80% better. I did observe him walking in his room going from the bathroom to his bed w not much difficulty. Review of Systems Except as stated in HPI: all other systems reviewed are Neg Past Family Social History Past Medical History Degenerative disc disease Chronic tobacco dependency COPD Past Surgical History Tonsillectomy and adenoidectomy Status post splenectomy Reported Medications Reported Meds & Active Scripts Active Nebulizer 1 Mis Mis Ea .XX DIRECTED [Albuterol Neb] 2.5 MG/3 ML Nebu 2.5 Mg INH Q2HR NEB PRN Reported Ventolin Hfa 18 GM Inh (Albuterol Sulfate) 90 Mcg/Act Aer 2 Puff INH Q4H PRN Allergies: Coded Allergies: sulfamethoxazole (Unverified Allergy, Severe, Anaphylaxis, 10/06/17) trimethoprim (Unverified Allergy, Severe, Anaphylaxis, 10/06/17) Family History Mother has retinal degeneration Social History Patient smokes a pack a day for > 20 years but states that he has cut down to 3/ 4 of a pack recently Denies alcohol Physical Exam Vital Signs Vital Signs Date Time Temp Pulse Resp B/P (MAP) Pulse Ox O2 Delivery O2 Flow Rate FiO2 10/07/17 10:45 94 21 10/07/17 07:57 96.5 84 18 110/79 (89) 97 10/07/17 04:07 97.0 83 20 113/72 (86) 96 10/06/17 23:30 94 Nasal Cannula 2.00 10/06/17 22:47 97.1 88 20 112/86 (95) 100 10/06/17 22:30 10/06/17 21:21 103 18 108/66 (80) 100 Non-Rebreather 15.00 10/06/17 21:02 104 18 100 Non-Rebreather 15.00 10/06/17 21:00 93 BiPAP 100 10/06/17 20:07 82 93 Room Air 10/06/17 19:35 99.3 104 20 111/76 (88) 94 Physical Exam GENERAL:frail looking male. appears comfortable. sitting up in bed. not using any accessory muscles SKIN: Cool and dry. HEAD: Atraumatic. Normocephalic. No temporal or scalp tenderness. EYES: Extraocular motions intact. ENT: Nose without drainage. Airway patent. poor dentition NECK: Trachea midline. CARDIOVASCULAR: Regular rate and rhythm without murmurs RESPIRATORY: Clear to auscultation. Breath sounds equal bilaterally. Faint exp wheezes GASTROINTESTINAL: Abdomen soft, non-tender, nondistended. No guarding. MUSCULOSKELETAL: Extremities without edema. NEUROLOGICAL: Awake and alert. Cranial nerves II through XII intact. Motor and sensory grossly within normal limits. Normal speech. Laboratory Laboratory Tests Test 10/06/17 20:00 10/06/17 20:06 10/06/17 23:16 10/07/17 07:15 White Blood Count 8.6 5.3 Red Blood Count 4.58 4.34 Hemoglobin 15.7 14.5 Hematocrit 45.8 41.4 Mean Corpuscular Volume 100.1 95.5 Mean Corpuscular Hemoglobin 34.4 33.5 Mean Corpuscular Hemoglobin Concent 34.3 35.1 Red Cell Distribution Width 12.6 12.5 Platelet Count 220 186 Mean Platelet Volume 8.1 9.4 Neutrophils (%) (Auto) 74.8 85.8 Lymphocytes (%) (Auto) 17.7 11.7 Monocytes (%) (Auto) 5.0 0.7 Eosinophils (%) (Auto) 0.4 0.7 Basophils (%) (Auto) 2.1 1.1 Neutrophils # (Auto) 6.5 4.6 Lymphocytes # (Auto) 1.5 0.6 Monocytes # (Auto) 0.4 0.0 Eosinophils # (Auto) 0.0 0.0 Basophils # (Auto) 0.2 0.1 CBC Comment DIFF FINAL DIFF FINAL Differential Comment Prothrombin Time 10.2 Prothromb Time International Ratio 1.0 Activated Partial Thromboplast Time 27.5 Blood Urea Nitrogen 6 5 Creatinine 0.76 0.63 Random Glucose 113 148 Calcium Level 8.8 9.0 Sodium Level 135 131 Potassium Level 3.4 4.3 Chloride Level 101 100 Carbon Dioxide Level 27.2 22.5 Anion Gap 7 9 Estimat Glomerular Filtration Rate 110 137 Troponin I LESS THAN 0.02 B-Type Natriuretic Peptide LESS THAN 2 Blood Gas Puncture Site RT RADIAL RT RADIAL Blood Gas Patient Temperature 98.6 98.6 Blood Gas HCO3 27 25 Blood Gas Base Excess 3.3 0.8 Blood Gas Oxygen Saturation 79 94 Arterial Blood pH 7.47 7.43 Arterial Blood Partial Pressure CO2 37 38 Arterial Blood Partial Pressure O2 57 358 Arterial Blood Oxygen Content 16.7 20.2 Arterial Blood Carboxyhemoglobin 14.1 4.4 Arterial Blood Methemoglobin 1.5 1.4 Blood Gas Hemoglobin 14.9 14.6 Blood Gas Liter Flow 21 15 Oxygen Delivery Device NRB Test 10/07/17 10:58 Blood Gas Puncture Site RT RADIAL Blood Gas Patient Temperature 37.0 Blood Gas HCO3 24 Blood Gas Base Excess 0.9 Blood Gas Oxygen Saturation 94 Arterial Blood pH 7.48 Arterial Blood Partial Pressure CO2 33 Arterial Blood Partial Pressure O2 75 Arterial Blood Oxygen Content 19.3 Arterial Blood Carboxyhemoglobin 1.5 Arterial Blood Methemoglobin 1.2 Blood Gas Hemoglobin 14.6 Oxygen Delivery Device RA Blood Gas Inspired Oxygen 21 Result Diagram: 10/07/17 0715 10/07/17 0715 Imaging Last Impressions Chest X-Ray 10/06/17 1953 Signed Impressions: CONCLUSION: No acute cardiopulmonary abnormality is identified. Abdomen/Pelvis CT 10/06/17 0000 Signed Impressions: CONCLUSION: 1. No acute finding is identified in the abdomen or pelvis to explain the abdo aleks pain. 2. Moderate atherosclerotic disease. Caprini VTE Risk Assessment Caprini VTE Risk Assessment: No/Low Risk (score <= 1) Caprini Risk Assessment Model Point Value = 1 Point Value = 2 Point Value = 3 Point Value = 5 Age 41-60 Minor surgery BMI > 25 kg/m2 Swollen legs Varicose veins or History of unexplained or recurrent spontaneous Oral contraceptives or hormone replacement Sepsis (< 1 month) Serious lung disease, including pneumonia (< 1 month) Abnormal pulmonary function Acute myocardial infarction Congestive heart failure (< 1 month) History of inflammatory bowel disease Medical patient at bed rest Age 61-74 Arthroscopic surgery Major open surgery (> 45 min) Laparoscopic surgery (> 45 min) Malignancy Confined to bed (> 72 hours) Immobilizing plaster cast Central venous access Age >= 75 History of VTE Family history of VTE Factor V Leiden Prothrombin [id number] Lupus anticoagulant Anticardiolipin antibodies Elevated serum homocysteine Heparin-induced thrombocytopenia Other congenital or acquired thrombophilia Stroke (< 1 month) Elective arthroplasty Hip, pelvis, or leg fracture Acute spinal cord injury (< 1 month) Prophylaxis Regimen Total Risk Factor Score Risk Level Prophylaxis Regimen 0-1 Low Early ambulation 2 Moderate Order ONE of the following: *Sequential Compression Device (SCD) *Heparin 5000 units SQ BID 3-4 Higher Order ONE of the following medications: *Heparin 5000 units SQ TID *Enoxaparin/Lovenox 40 mg SQ daily (WT < 150 kg, CrCl > 30 mL/min) *Enoxaparin/Lovenox 30 mg SQ daily (WT < 150 kg, CrCl > 10-29 mL/min) *Enoxaparin/Lovenox 30 mg SQ BID (WT < 150 kg, CrCl > 30 mL/min) AND/OR *Sequential Compression Device (SCD) 5 or more Highest Order ONE of the following medications: *Heparin 5000 units SQ TID (Preferred with Epidurals) *Enoxaparin/Lovenox 40 mg SQ daily (WT < 150 kg, CrCl > 30 mL/min) *Enoxaparin/Lovenox 30 mg SQ daily (WT < 150 kg, CrCl > 10-29 mL/min) *Enoxaparin/Lovenox 30 mg SQ BID (WT < 150 kg, CrCl > 30 mL/min) AND *Sequential Compression Device (SCD) Assessment and Plan Assessment and Plan COPD exacerbation: ABG on admittion showed a pH of 7.47, pCO2 37, carboxyhemoglobin 14.1, HCO3 27. Pt was placed on biPAP and then de-escalated to non-rebreather at 15L. A repeat ABG showed pH 7.43, PCO2 38, HCO3 24 and carboxyhemoglobin of 4.4. In the ED he also received a dose of IV solu-medrol and a breathing treatment. Will continue solu-medrol IV q6hrs, scheduled and prn breathing treatments and added symbicort 2puffs twice a day as his COPD is not well controlled at home. Encouraged use of IS q1hr. Pt was extensively counseled on quitting smoking and the importance of doing so. Pt voiced his understanding. Pt is feeling 80% better. A repeat ABG this morning showed pH of 7.48, pCO2 33, HCO3 24 and carboxyhemoglobin of 1.5 on room air. Will order a walk test. Will re-evaluated the patient later today and possibly discharge him later today w close f/u w his PCP. Tobacco abuse: Pt has been extensively counseled to quit and he voices his understanding. DVT proph: ambulation/SCD Discussed Condition With patient Misty Fish MD Oct 07, 2017 11:38
[2017-10-07] MEDS ORDERED: methylPREDNISolone SOD SUCC 40 MG/1 ML VIAL IV PUSH SCH (12:00)
[2017-10-07] MEDS ORDERED: PRED50 PO (12:07)
[2017-10-07] MEDS ORDERED: Budeson-Formot 160-4.5 Mcg Inh INH (12:07)
[2017-10-07] MEDS ORDERED: Albuterol-Ipratropium Neb NEB (12:07)
[2017-10-07] MEDS ORDERED: RESP: ALBUTEROL 2.5 MG/IPRATROPIUM 0.5 MG NEB (SCH) NEB (14:00)
--- NOTE | 2017-10-07 16:05 | EKG ---
Date Performed: 10/06/2017 Time Performed: 19:59:58 PTAGE: 47 years EKG: SINUS TACHYCARDIA BORDERLINE RIGHT AXIS DEVIATION ABNORMAL RHYTHM ECG Since the PREVIOUS TRACING , no significant change noted PREVIOUS TRACIN08/30/2017 14.13 DOCTOR: Amaya Baptiste Interpretating Date/Time 10/07/2017 16:00:50
== END 2017-10-07 13:20 | disposition home or self-care (01) ==
LOC: PHED 19:30 → PHEDA 20:59 → PH3A 22:33
PROVIDERS: ADMIT Hospitalist; ATTEND Hospitalist
DX: J44.1 Chronic obstructive pulmonary disease with (acute) exacerbation (principal); R09.02 Hypoxemia; F17.210 Nicotine dependence, cigarettes, uncomplicated
CPT/HCPCS: 36600; 71045; 74177; 80048; 82805; 83880; 84484; 85025; 85610; 85730; 93005; 94150; 94618; 94640; 94664; 96374; 96376; 99285; G0378; J2920; J2930; Q9967